=== PATIENT | female | born 1985 | race African-American/Black ===

== ENCOUNTER 2018-05-22 08:08 | Emergency (ER) | payer OTHER ==
[2018-05-22 08:14] VITALS: BP 103/65
--- NOTE | 2018-05-22 10:40 | UC ---
Skin Complaint HPI - HPI Summary HPI Summary: 33 yo female c/o itchy bumps, started in evening but bad this morning. Better now, but still itchy. Noted rash on forearms, back and torso. No sob / cp. No report of tongue swelling / stridor / sob. Not sure if contact from yesterday or other exposure. No fever / chills. - History of Current Complaint Chief Complaint: UCRash Time Seen by Provider: 05/22/18 09:40 Stated Complaint: RASH Hx Obtained From: Patient Hx Last Menstrual Period: 05/20/18 Pain Intensity: 0 Pain Scale Used: 0-10 Numeric - Allergy/Home Medications Allergies/Adverse Reactions: Allergies Allergy/AdvReac Type Severity Reaction Status Date / Time No Known Allergies Allergy Verified 05/22/18 08:15 Review of Systems All Other Systems Reviewed And Are Negative: Yes Constitutional: Positive: Negative Skin: Positive: Other - see hpi Eyes: Positive: Negative ENT: Positive: Negative Respiratory: Positive: Negative Cardiovascular: Positive: Negative Gastrointestinal: Positive: Negative Genitourinary: Positive: Negative Motor: Positive: Negative Neurovascular: Positive: Negative Musculoskeletal: Positive: Negative Neurological: Positive: Negative Psychological: Positive: Negative Is Patient Immunocompromised?: No PMH/Surg Hx/FS Hx/Imm Hx Previously Healthy: Yes - Surgical History Surgical History: None - Family History Known Family History: Positive: Other - she is not aware of any family heart disorders - Social History Alcohol Use: Occasionally Substance Use Type: None Smoking Status (MU): Former Smoker Household Exposure Type: Cigarettes Physical Exam Triage Information Reviewed: Yes Appearance: Well-Nourished - NAD. Nontoxic appearance. Vital Signs: Initial Vital Signs Temp 97.3 F 05/22/18 08:11 Pulse 66 05/22/18 08:11 Resp 16 05/22/18 08:11 BP 103/65 05/22/18 08:11 Pulse Ox 98 05/22/18 08:11 Eye Exam: Normal ENT Exam: Normal Neck exam: Normal Respiratory Exam: Normal - no tachypnea , no dypsnea, no cough, rr normal Cardiovascular Exam: Normal Abdominal Exam: Normal Abdomen Description: Positive: Nontender Musculoskeletal Exam: Normal Neurological Exam: Normal Psychological Exam: Normal Skin Exam: Other - several lesions scattered noted on back, very small, these are suspicious for insect bite. there are several other areas noted on back, pt describes similar on forearms, c/w hives. No purulence / drainage / fluctuance. Course/Dx - Course Course Of Treatment: Reviewed coa / tx plan. She will take the medrol dose pack script, will start tomorrow am if not better or worse. Will start antihist , add pepcid. Questions as posed answered to the best of my ability. - Diagnoses Provider Diagnoses: Rash - c/w combo insect bites and hives Discharge - Sign-Out/Discharge Documenting (check all that apply): Patient Departure All imaging exams completed and their final reports reviewed: No Studies - Discharge Plan Condition: Stable Disposition: HOME Prescriptions: methylPREDNISolone [Medrol] 4 mg PO DAILY #1 tab.ds.pk Patient Education Materials: Antihistamine (By mouth), Urticaria (ED), Insect Bite or Sting (ED) Referrals: Franky Sarah MD [Primary Care Provider] - Additional Instructions: Avoid red wine, strong soaps, hot water / hot local heat until symptoms resolved. drink plenty of fluids Pepcid ac once daily while taking antihistamine - Billing Disposition and Condition Condition: STABLE Disposition: Home
== END 2018-05-22 10:12 | disposition home or self-care (01) ==
LOC: UCEAST 08:08
DX: R21 Rash and other nonspecific skin eruption (principal); Z87.891 Personal history of nicotine dependence
CPT/HCPCS: 99212; G0463

== ENCOUNTER 2018-08-19 16:29 | Emergency (ER) | payer OTHER ==
--- NOTE | 2018-08-19 18:03 | ED ---
Complex/Multi-Sys Presentation - HPI Summary HPI Summary: This pt is a 33 y/[facility], lightheadedness, dizziness x3 days. Pt reports she has an eating disorder, anorexia, and is seeing a therapist (Ijeoma Pabon) for this in [place]. Pt notes she eats one meal a day and eats around 1530. Today at about 15:30 pt was 3 bites in into her bowl of oatmeal when she experienced "out of body experience," lightheadedness, dizziness, sweating, nausea, visual disturbance, and back of head "prickling." She states she has had this episode happen since 2 days ago, . Additionally currently reports she has chest tightness. Denies SOB, fever , chills. Pt reports she had a fever over the weekend, now resolved . She admits to occasionally alcohol use, none today. Denies tobacco and drug use. No other PMHx. - History Of Current Complaint Chief Complaint: EDGeneral Time Seen by Provider: 08/19/18 17:49 Hx Obtained From: Patient Onset/Duration: Lasting Days, Still Present Timing: Days Severity Currently: Mild Severity Initially: Moderate Location: Pain At: - chest tightness Aggravating Factor(s): nothing Alleviating Factor(s): nothing Associated Signs And Symptoms: Positive: Dizziness, Chest Pain, Nausea, Diaphoresis, Other - POS: visual disturbance, lightheadedness. Negative: SOB, Fever - Allergies/Home Medications Allergies/Adverse Reactions: Allergies Allergy/AdvReac Type Severity Reaction Status Date / Time No Known Allergies Allergy Verified 05/22/18 08:15 Home Medications: Home Medications buPROPion SR TAB* [Wellbutrin SR TAB*] 150 mg PO DAILY 08/19/18 [History Confirmed 08/19/18] PMH/Surg Hx/FS Hx/Imm Hx Endocrine/Hematology History: Denies: Hx Diabetes, Hx Thyroid Disease Cardiovascular History: Denies: Hx Hypertension, Hx Pacemaker/ICD, Hx Peripheral Vascular Disease Respiratory History: Denies: Hx Asthma, Hx Chronic Obstructive Pulmonary Disease (COPD) GI History: Denies: Hx Ulcer History: Denies: Hx Renal Disease Musculoskeletal History: Denies: Hx Arthritis, Hx Rheumatoid Arthritis, Hx Osteoporosis Sensory History: Denies: Hx Cataracts, Hx Contacts or Glasses, Hx Glaucoma, Hx Hearing Aid Opthamlomology History: Denies: Hx Cataracts, Hx Contacts or Glasses, Hx Glaucoma Neurological History: Denies: Hx Headaches, Hx Seizures, Hx Transient Ischemic Attacks (TIA) Psychiatric History: Reports: Hx Eating Disorder - anorexia Denies: Hx Anxiety, Hx Depression, Hx Panic Disorder Infectious Disease History: No Infectious Disease History: Denies: Hx Clostridium Difficile, Hx Hepatitis, Hx Human Immunodeficiency Virus (HIV), Hx of Known/Suspected MRSA, Hx Shingles, Hx Tuberculosis, Hx Known/ Suspected VRE, Hx Known/Suspected VRSA, History Other Infectious Disease, Traveled Outside the [place] in Last 30 Days - Family History Known Family History: Positive: Other - she is not aware of any family heart disorders - Social History Alcohol Use: Weekly Substance Use Type: Reports: None Smoking Status (MU): Former Smoker Review of Systems Positive: Skin Diaphoresis. Negative: Fever, Chills Eyes: Other - POS: visual changes Positive: Chest Pain Negative: Shortness Of Breath Positive: Nausea Neurological: Other - POS: dizziness, lightheadedness All Other Systems Reviewed And Are Negative: Yes Physical Exam - Summary Physical Exam Summary: VITAL SIGNS: Reviewed. GENERAL: Patient is a well-developed and nourished female who is lying comfortable in the stretcher. Patient is not in any acute respiratory distress. HEAD AND FACE: No signs of trauma. No ecchymosis, hematomas or skull depressions. No sinus tenderness. EYES: PERRLA, EOMI x 2, No injected conjunctiva, no nystagmus. EARS: Hearing grossly intact. Ear canals and tympanic membranes are within normal limits. MOUTH: Oropharynx within normal limits. NECK: Supple, trachea is midline, no adenopathy, no JVD, no carotid bruit, no c- spine tenderness, neck with full ROM. CHEST: Symmetric, no tenderness at palpation LUNGS: Clear to auscultation bilaterally. No wheezing or crackles. CVS: Regular rate and rhythm, S1 and S2 present, no murmurs or gallops appreciated. ABDOMEN: Soft, non-tender. No signs of distention. No rebound, no guarding, and no masses palpated. Bowel sounds are normal. EXTREMITIES: FROM in all major joints, no edema, no cyanosis or clubbing. NEURO: Alert and oriented x 3. No acute neurological deficits. Speech is normal and follows commands. SKIN: Dry and warm Triage Information Reviewed: Yes Vital Signs On Initial Exam: Initial Vitals Temp Pulse Resp BP Pulse Ox 98.7 F 91 20 132/84 98 08/19/18 16:32 08/19/18 16:32 08/19/18 16:32 08/19/18 16:32 08/19/18 16:32 Vital Signs Reviewed: Yes Diagnostics - Vital Signs Vital Signs Temp Pulse Resp BP Pulse Ox 08/19/18 17:33 72 110/68 96 08/19/18 16:32 98.7 F 91 20 132/84 98 - Laboratory Result Diagrams: 08/19/18 18:28 08/19/18 18:28 Lab Statement: Any lab studies that have been ordered have been reviewed, and results considered in the medical decision making process. Re-Evaluation - Re-Evaluation First Eval Re-Evaluation Time: 20:10 Comment: I reviewed the lab results with the pt. She will be discharged home. Complex Multi-Symp Course/Dx Assessment/Plan: Blood work without any significant abnormality except for WBCs of 2.8 and absolute neutrophils of 0.9. Patient denies any fever, chills, denies any cough, headache, shortness of breath, diarrhea or constipation. I discussed the case with Dr. Alexander, oncologist, who thinks that the patient is having this blood test results due to her anorexia and lack of caloric intake. However, he recommends for the patient to be discharged home and follow up with oncology/hematology. I discussed the findings and test results with the patient and she understands and agrees. She will follow-up with hematology. She was instructed to return to the emergency room if she develops any fever, chills, or any other symptom. She understands and agrees. Patient is alert and oriented x3. - Diagnoses Provider Diagnoses: Neutropenia, Leukopenia - Physician Notifications Discussed Care Of Patient With: iRan Alexander - oncologist Time Discussed With Above Provider: 20:08 Instructed by Provider To: Other - Discussed pt care with Dr. Alexander, oncologist , who reports pt can be discharged home with follow up in his office. Discharge - Sign-Out/Discharge Documenting (check all that apply): Patient Departure - Discharge home Patient Received Moderate/Deep Sedation with Procedure: No - Discharge Plan Condition: Stable Disposition: HOME Patient Education Materials: Neutropenia (ED) Referrals: Rian Alexander MD [Medical Doctor] - 2 Days Additional Instructions: FOLLOW UP WITH DR. ALEXANDER, ONCOLOGIST, IN 2 DAYS. RETURN TO THE ED FOR ANY NEW OR WORSENING SYMPTOMS. - Billing Disposition and Condition Condition: STABLE Disposition: Home - Attestation Statements Document Initiated by Anabellaibe: Yes Documenting Scribe: Elsa Mccullough Provider For Whom Scribe is Documenting (Include Credential): Kashmir Nuno MD Scribe Attestation: Elsa Lee, scribed for Kashmir Nuno MD on 08/21/18 at 2042. Scribe Documentation Reviewed: Yes Provider Attestation: The documentation as recorded by the Elsa waite accurately reflects the service I personally performed and the decisions made by Kashmir rosa MD Status of Scribe Document: Viewed
[2018-08-19 18:36] LABS: Hematocrit 39 % (35-47); Hemoglobin 13.1 g/dl (12.0-16.0); Mean Corpuscular HGB Conc 34 g/dl (31-36); Mean Corpuscular Hemoglobin 31 pg (27-31); Mean Corpuscular Volume 91 fL (80-97); Mean Platelet Volume 8.5 fL (7.4-10.4); Platelet Count 192 10^3/ul (150-450); Red Blood Count 4.26 10^6/ul (4.00-5.40); Red Cell Distribution Width 14 % (10.5-15); White Blood Count 2.8 10^3/ul (3.5-10.8)
[2018-08-19 18:38] LABS: Urine Appearance Clear; Urine Bilirubin Negative (Negative); Urine Blood Negative (Negative); Urine Color Straw; Urine Glucose Negative (Negative); Urine Ketones Negative (Negative); Urine Nitrite Negative (Negative); Urine Protein Negative (Negative); Urine Specific Gravity 1.003 (1.010-1.030); Urine Urobilinogen Negative (Negative)
[2018-08-19 18:45] LABS: ABS Neutrophils 0.9 10^3/ul (1.5-7.7)
[2018-08-19 18:53] LABS: ALT 29 U/L (7-52); AST 37 U/L (13-39); Albumin 4.3 g/dL (3.2-5.2); Albumin/Globulin Ratio 1.8 (1-3); Alkaline Phosphatase 36 U/L (34-104); Anion Gap 4 mmol/L (2-11); Blood Urea Nitrogen 15 mg/dL (6-24); C Reactive Protein < 1.00 mg/L (<8.01); CO2 Carbon Dioxide 31 mmol/L (22-32); Calcium 8.9 mg/dL (8.6-10.3); Chloride 105 mmol/L (101-111); EGFR African American 88.5 (>60); EGFR Non-African American 73.1 (>60); Globulin 2.4 g/dL (2-4); Glucose 99 mg/dL (70-100); Sodium 140 mmol/L (135-145); Total Protein 6.7 g/dL (6.4-8.9)
[2018-08-19 19:49] LABS: ABS Basophils 0 10^3/ul (0-0.2); ABS Eosinophils 0 10^3/ul (0-0.6); ABS Lymphocytes 1.4 10^3/ul (1.0-4.8); ABS Monocytes 0.5 10^3/ul (0-0.8); ABS Nucleated RBC 0 10^3/ul; Eosinophil % 0.2 %; Lymphocyte % 51.1 %; Nucleated Red Blood Cells % 0.1
[2018-08-19 20:23] VITALS: BP 102/66
== END 2018-08-19 20:23 | disposition home or self-care (01) ==
LOC: ED 16:29
DX: D72.819 Decreased white blood cell count, unspecified (principal); Z87.891 Personal history of nicotine dependence
CPT/HCPCS: 36415; 80053; 81003; 83690; 85025; 85060; 86140; 99282

== ENCOUNTER 2019-09-07 20:23 | Emergency (ER) | payer OTHER ==
[2019-09-07 21:03] LABS: ABS Lymphocytes 1.7 10^3/ul (1.0-4.8); ABS Monocytes 0.5 10^3/ul (0-0.8); ABS Neutrophils 3.3 10^3/ul (1.5-7.7); Eosinophil % 0.8 %; Hematocrit 43 % (35-47); Hemoglobin 14.8 g/dL (12.0-16.0); Lymphocyte % 30.9 %; Mean Corpuscular HGB Conc 35 g/dL (31-36); Mean Corpuscular Hemoglobin 33 pg (27-31); Mean Corpuscular Volume 94 fL (80-97); Mean Platelet Volume 8.3 fL (7.4-10.4); Nucleated Red Blood Cells % 0.1; Platelet Count 230 10^3/uL (150-450); Red Blood Count 4.54 10^6 /uL (3.70-4.87); Red Cell Distribution Width 14 % (10-15); White Blood Count 5.6 10^3/uL (3.5-10.8)
[2019-09-07 21:21] LABS: ALT 13 U/L (7-52); AST 22 U/L (13-39); Albumin 5.2 g/dL (3.2-5.2); Albumin/Globulin Ratio 1.9 (1-3); Alkaline Phosphatase 40 U/L (34-104); Anion Gap 9 mmol/L (2-11); BUN/Creatinine Ratio 14.3 (8-20); Blood Urea Nitrogen 12 mg/dL (6-24); C Reactive Protein < 1.00 mg/L (<8.01); CO2 Carbon Dioxide 31 mmol/L (22-32); Calcium 10.6 mg/dL (8.6-10.3); Chloride 100 mmol/L (101-111); EGFR African American 92.8 (>60); EGFR Non-African American 76.7 (>60); Globulin 2.7 g/dL (2-4); Glucose 106 mg/dL (70-100); Potassium 3.9 mmol/L (3.5-5.0); Sodium 140 mmol/L (135-145); Total Protein 7.9 g/dL (6.4-8.9)
[2019-09-08] MEDS ORDERED: Pantoprazole IV* 40 MG IV ONE (01:02)
[2019-09-08 01:12] LABS: Amylase 77 U/L (29-103)
[2019-09-08 01:18] LABS: Alcohol < 10 mg/dL (<10)
--- NOTE | 2019-09-08 01:33 | ED ---
Abdominal Pain/Female - HPI Summary HPI Summary: Pt is a 34 y/o F presenting to the ED with a chief complaint of intense LUQ pain. She [facility] advised her to come here. While she was in the parking lot, her pain went away, but she googled it and thought it might be exacerbated by food/drink, so she drank some water and the pain came back with a vengeance. It has been wavering between a 6 and 8 out of 10 in her epigastric region, but she currently denies any pain. The pain did radiate to her right upper quadrant and epigastric region as well. She had some diarrhea just prior to onset. Denies urinary sx. She states she is anorexic and drinks too much alcohol so she is worried about pancreatitis. Her blood sugar has also been low recently. - History of Current Complaint Chief Complaint: EDAbdPain Stated Complaint: ABD PAIN PER PT Time Seen by Provider: 09/08/19 00:33 Hx Obtained From: Patient Hx Last Menstrual Period: 05/20/18 Onset/Duration: Gradual Onset, Still Present Timing: Days Severity Initially: Moderate Severity Currently: None Pain Intensity: 8 Pain Scale Used: 0-10 Numeric Location: Discrete At: LUQ Radiates: No Aggravating Factor(s): Food - any oral intake Alleviating Factor(s): Nothing Associated Signs and Symptoms: Positive: Diarrhea. Negative: Urinary Symptoms Allergies/Adverse Reactions: Allergies Allergy/AdvReac Type Severity Reaction Status Date / Time No Known Allergies Allergy Verified 09/07/19 20:27 Home Medications: Home Medications Multiple Minerals W/ Vitamins [Bone Density Builder] 1 tab PO DAILY 02/19/17 [ History Confirmed 08/19/18] [place]-3 Fatty Acids/Fish Oil [Fish Oil 1,200 mg Softgel] 1 cap PO DAILY [History Confirmed 08/19/18] Polyethylene Glycol 3350* [Miralax (17 GM DOSE NANCY)] 17 gm PO DAILY 02/19/17 [ History Confirmed 08/19/18] Vitamin B Complex CAP* [B Complex CAP*] 1 cap PO DAILY 02/19/17 [History Confirmed 08/19/18] buPROPion SR TAB* [Wellbutrin SR TAB*] 150 mg PO DAILY 08/19/18 [History Confirmed 08/19/18] Omeprazole CAP (NF) [Prilosec CAP* 20 MG] 20 mg PO 1700 #30 ahsan. 09/08/19 [Rx] PMH/Surg Hx/FS Hx/Imm Hx Previously Healthy: Yes Endocrine/Hematology History: Denies: Hx Diabetes, Hx Thyroid Disease Cardiovascular History: Denies: Hx Hypertension, Hx Pacemaker/ICD, Hx Peripheral Vascular Disease Respiratory History: Denies: Hx Asthma, Hx Chronic Obstructive Pulmonary Disease (COPD) GI History: Denies: Hx Ulcer History: Denies: Hx Renal Disease Musculoskeletal History: Denies: Hx Arthritis, Hx Rheumatoid Arthritis, Hx Osteoporosis Sensory History: Denies: Hx Cataracts, Hx Contacts or Glasses, Hx Glaucoma, Hx Hearing Aid Opthamlomology History: Denies: Hx Cataracts, Hx Contacts or Glasses, Hx Glaucoma Neurological History: Denies: Hx Headaches, Hx Seizures, Hx Transient Ischemic Attacks (TIA) Psychiatric History: Reports: Hx Eating Disorder - anorexia Denies: Hx Anxiety, Hx Depression, Hx Panic Disorder Infectious Disease History: No Infectious Disease History: Denies: Hx Clostridium Difficile, Hx Hepatitis, Hx Human Immunodeficiency Virus (HIV), Hx of Known/Suspected MRSA, Hx Shingles, Hx Tuberculosis, Hx Known/ Suspected VRE, Hx Known/Suspected VRSA, History Other Infectious Disease, Traveled Outside the [place] in Last 30 Days - Family History Known Family History: Positive: Other - she is not aware of any family heart disorders - Social History Alcohol Use: Weekly Hx Substance Use: No Substance Use Type: Reports: None Hx Tobacco Use: Yes Smoking Status (MU): Light Every Day Tobacco Smoker Review of Systems Positive: Abdominal Pain, Diarrhea Positive: no symptoms reported All Other Systems Reviewed And Are Negative: Yes Physical Exam - Summary Physical Exam Summary: General: Thin female. No acute distress. HEENT: Normocephalic, Atraumatic. Eyes: Conjuctiva normal, PERRL. Oropharynx: Clear, mucous membranes moist, (-) exudates. Neck: Soft, FROM, (-) lymphadenopathy, (-) thyromegaly, (-) JVD. Cardiovascular: Normal sinus rhythm, (-) murmur. Lungs: Clear to auscultation bilaterally (-) wheezes, (-) rales, (-) rhonchi. Abdomen: Soft, non-tender, non-distended, (-) organomegaly, normal bowel sounds. Back: (-) CVA tenderness Extremities: No edema. Skin: Warm, dry, (-) rash. Neuro: Alert and oriented x3, moves all extremities equally. No ataxia. No gait disturbance. No sensory deficit. Normal strength, normal sensation. Psychiatric: Mood normal, affect normal. Triage Information Reviewed: Yes Vital Signs On Initial Exam: Initial Vitals Temp Pulse Resp BP Pulse Ox 98.2 F 81 16 144/106 100 09/07/19 20:23 09/07/19 20:23 09/07/19 20:23 09/07/19 20:23 09/07/19 20:23 Vital Signs Reviewed: Yes Procedures - Sedation Patient Received Moderate/Deep Sedation with Procedure: No Diagnostics - Vital Signs Vital Signs Temp Pulse Resp BP Pulse Ox 09/08/19 00:32 57 108/76 97 09/08/19 00:03 56 98 09/08/19 00:02 58 134/85 98 09/07/19 22:45 98.5 F 65 16 150/109 100 09/07/19 20:23 98.2 F 81 16 144/106 100 - Laboratory Lab Results: Lab Results 09/07/19 09/07/19 09/07/19 Range/Units 20:54 20:54 20:54 WBC 5.6 (3.5-10.8) 10^3/uL RBC 4.54 (3.70-4.87) 10^6 /uL Hgb 14.8 (12.0-16.0) g/dL Hct 43 (35-47) % MCV 94 (80-97) fL MCH 33 H (27-31) pg MCHC 35 (31-36) g/dL RDW 14 (10-15) % Plt Count 230 (150-450) 10^3/uL MPV 8.3 (7.4-10.4) fL Neut % (Auto) 59.2 % Lymph % (Auto) 30.9 % [place] % (Auto) 8.5 % Eos % (Auto) 0.8 % Baso % (Auto) 0.6 % Absolute Neuts (auto) 3.3 (1.5-7.7) 10^3/ul Absolute Lymphs (auto) 1.7 (1.0-4.8) 10^3/ul Absolute Monos (auto) 0.5 (0-0.8) 10^3/ul Absolute Eos (auto) 0.0 (0-0.6) 10^3/ul Absolute Basos (auto) 0.0 (0-0.2) 10^3/ul Absolute Nucleated RBC 0.0 10^3/ul Nucleated RBC % 0.1 Sodium 140 (135-145) mmol/L Potassium 3.9 (3.5-5.0) mmol/L Chloride 100 L (101-111) mmol/L Carbon Dioxide 31 (22-32) mmol/L Anion Gap 9 (2-11) mmol/L BUN 12 (6-24) mg/dL Creatinine 0.84 (0.51-0.95) mg/dL Est GFR ( Amer) 92.8 (>60) Est GFR (Non-Af Amer) 76.7 (>60) BUN/Creatinine Ratio 14.3 (8-20) Glucose 106 H (70-100) mg/dL Lactic Acid 1.0 (0.5-2.0) mmol/L Calcium 10.6 H (8.6-10.3) mg/dL Total Bilirubin 0.50 (0.2-1.0) mg/dL AST 22 (13-39) U/L ALT 13 (7-52) U/L Alkaline Phosphatase 40 (34-104) U/L C-Reactive Protein < 1.00 (<8.01) mg/L Total Protein 7.9 (6.4-8.9) g/dL Albumin 5.2 (3.2-5.2) g/dL Globulin 2.7 (2-4) g/dL Albumin/Globulin Ratio 1.9 (1-3) Amylase 77 (29-103) U/L Lipase 21 (11.0-82.0) U/L Serum Alcohol < 10 (<10) mg/dL Result Diagrams: 09/07/19 20:54 09/07/19 20:54 Lab Statement: Any lab studies that have been ordered have been reviewed, and results considered in the medical decision making process. Abdominal Pain Fem Course/Dx - Course Course Of Treatment: 34-year-old female presents from home with abdominal pain. Patient states she's been having severe abdominal pain tonight. Somewhat waxing and waning. As high as 8 out of 10. Patient states it seemed to get worse with food. At this time her pain has decreased and is now a 2 out of 10. She had some nausea. No vomiting. Had episode of diarrhea this morning. No fevers or chills. Patient does note a history of anorexia. She also states she drinks too much alcohol. So when she was looking her symptoms up online and she was worried about her pancreas. Patient has no previous abdominal surgeries. Workup demonstrates a slightly elevated calcium. No urine was obtained. Patient's symptoms remain improved. CAT scan was considered but since patient is afebrile, normal white count, improved symptoms that was deferred. Patient discharged to home. Discussed possible etiologies such as gastritis and reflux. Given Protonix and started on omeprazole. Follow up with PCP. Follow-up sooner for any worsening symptoms. - Diagnoses Provider Diagnoses: Upper abdominal pain Discharge ED - Sign-Out/Discharge Documenting (check all that apply): Patient Departure - Discharge Plan Condition: Stable Disposition: HOME Prescriptions: Omeprazole CAP (NF) [Prilosec CAP* 20 MG] 20 mg PO 1700 #30 cap.dr Patient Education Materials: Abdominal Pain (ED) Referrals: Mikel Easley, ADMINISTRATIVE SUPPORT MANAGER [Primary Care Provider] - Additional Instructions: Please follow up with your primary care provider within the next 2-3 days. Return to the emergency department with any new or worsening symptoms. - Billing Disposition and Condition Condition: STABLE Disposition: Home - Attestation Statements Document Initiated by Diamond: Yes Documenting Scribe: Aura Danielle Provider For Whom Diamond is Documenting (Include Credential): Linn Paredes MD. Scribe Attestation: Aura Lee, fatoumataed for Linn Paredes MD. on 09/08/19 at 0446. Scribe Documentation Reviewed: Yes Provider Attestation: The documentation as recorded by the Aura waite accurately reflects the service I personally performed and the decisions made by me, Linn Paredes MD. Status of Scribe Document: Viewed
[2019-09-08 02:50] VITALS: BP 115/86
[2019-09-08] MEDS ORDERED: Pantoprazole TAB * 40 MG TAB ONE (02:55)
[2019-09-08] MEDS ORDERED: Pantoprazole TAB * 40 MG TAB PO ONE (02:55)
== END 2019-09-08 03:18 | disposition home or self-care (01) ==
LOC: ED 20:23
DX: R10.9 Unspecified abdominal pain (principal); R19.7 Diarrhea, unspecified; F17.210 Nicotine dependence, cigarettes, uncomplicated
CPT/HCPCS: 36415; 80053; 80320; 82150; 83605; 83690; 85025; 86140; 99283; A9270-GY; G0480

== ENCOUNTER 2019-10-20 17:40 | Emergency (ER) | payer OTHER ==
--- OUTSIDE RECORDS SUMMARY | 2019-10-20 18:21 | XMS REPORT | Continuity of Care Document ---
:1985 External Reference #:[id number] Author Name Mikel Easley NP (transmitted by agent of provider Cynthia Salas) Address [address], [address] [place] [id number] Care Team Providers Name Role Phone Karmen Hwang NP - Family Care Team Information Manager Validation [phone] Heath Leach MD - Rheumatology Care Team Information Manager Validation Mikel Easley NP - Internal Medicine Care Team Information Manager Validation Problems Active Problems Provider Date Localized, primary osteoarthritis Nallely Bledsoe M.D. Onset: 02/06/2018 Derangement of knee Nallely Bledsoe M.D. Onset: 03/30/2018 Anorexia nervosa Mikel Easley NP Onset: 08/31/2018 Osteopenia Mikel Easley NP Onset: 01/12/2019 Note: Secondary to eating disordere Social History Type Date Description Comments Sex Unknown Tobacco Use Start: Unknown Light tobacco smoker 3-4 cigarettes per (10 or fewer day Quit 4-5 years cigarettes/day) ago then started again 2 months ago. ETOH Use Drinks 4 Alcoholic 4-6 per week Beverages Per Week Previously high alcohol intake. Recreational Drug Use Never Used Drugs Tobacco Use Start: Unknown Patient is a current smoker, smokes every day Smoking Status Reviewed: 09/08/19 Patient is a current smoker, smokes every day Exercise Type/Frequency Does not exercise Allergies, Adverse Reactions, Alerts Description No Known Drug Allergies Medications Active Medications SIG Qnty Indications Ordering Provider Date Omeprazole 1 by mouth twice 30caps K30 Mikel Easley NP 09/08/[address] Sucralfate take one tablet 90tabs K30 Mikel Easley NP 09/08/2019 1gm Tablets by mouth four times a day [place] 3 one capsule by Unknown mouth daily Vitamin B Complex one tablet by Unknown mouth daily Bone Builder 2 capsules three Unknown times daily Vitamin K2-Vitamin D3 Unknown [id number] Capsules Naltrexone HCL 1/2 tablet by Unknown 50mg mouth every day Tablets Immunizations Description No Information Available Vital Signs Date Vital Result Comment 09/08/2019 11:51am Height 64 inches 5'4" Heart Rate 63 /min BP Systolic 104 mmHg BP Diastolic 72 mmHg O2 % BldC Oximetry 100 % 01/21/2019 9:37am Height 64 inches 5'4" Weight 99.00 lb Heart Rate 77 /min BP Systolic 107 mmHg BP Diastolic 73 mmHg O2 % BldC Oximetry 99 % BMI (Body Mass Index) 17.0 kg/m2 Results Description No Information Available Procedures Date Code Description Status 07/03/2017 [id number] Mammogram Completed Medical Devices Description No Information Available Encounters Description No Information Available Assessments Date Code Description Provider 09/08/2019 K30 Functional dyspepsia Mikel Easley NP Plan of Treatment 09/08/2019 - Mikel Easley NPK30 Functional dyspepsiaNew Medication:Omeprazole 20 mg - 1 by mouth twice dailySucralfate 1 gm - take one tablet by mouth four times a dayComments:Start taking the omeprzole twice daily. Do this for at least 2-4 weeks. Then you can try reducing toonce daily for two more weeks.Take the carafate 30 minutes prior to meals. Functional Status Description No Information Available Mental Status Description No Information Available Referrals Description No Information Available
--- OUTSIDE RECORDS SUMMARY | 2019-10-20 18:21 | XMS REPORT | Continuity of Care Document ---
:1985 External Reference #:[id number] Author Name Mikel Easley NP (transmitted by agent of provider Vandana Barajas) Address [address], [address] [place] [id number] Care Team Providers Name Role Phone Karmen Hwang NP - Family Care Team Information Analysis Analyst [phone] Heath Leach MD - Rheumatology Care Team Information Analysis Analyst Mikel Easley NP - Internal Medicine Care Team Information Analysis Analyst Problems Active Problems Provider Date Localized, primary [...] Tablets by mouth four times a day [place] 3 one capsule by Unknown mouth daily Vitamin B Complex one tablet by Unknown mouth daily Bone Builder 2 capsules three Unknown times daily Vitamin K2-Vitamin D3 Unknown [id number] Capsules Naltrexone HCL 1/2 tablet by Unknown [...] BMI (Body Mass Index) 17.0 kg/m2 Results Test Acquired Date Facility Test Result H/L Range Note CBC Auto 09/07/2019 [facility] White Blood 5.6 10^3/uL Normal 3.5-10.[address] [place] [address] [phone] Red Blood Count 4.54 10^6/uL Normal 3.70-4.87 Hemoglobin 14.8 g/dL Normal 12.0-16.0 Hematocrit 43 % Normal 35-47 Mean Corpuscular Volume 94 fL Normal 80-97 Mean Corpuscular Hemoglobin 33 pg High 27-31 Mean Corpuscular HGB Conc 35 g/dL Normal 31-36 Red Cell Distribution Width 14 % Normal 10-15 Platelet Count 230 10^3/uL Normal 150-450 Mean Platelet Volume 8.3 fL Normal 7.4-10.4 Abs Neutrophils 3.3 10^3/uL Normal 1.5-7.7 Abs Lymphocytes 1.7 10^3/uL Normal 1.0-4.8 Abs Monocytes 0.5 10^3/uL Normal 0-0.8 Abs Eosinophils 0.0 10^3/uL Normal 0-0.6 Abs Basophils 0.0 10^3/uL Normal 0-0.2 Abs Nucleated RBC 0.0 10^3/uL Granulocyte % 59.2 % Lymphocyte % 30.9 % Monocyte % 8.5 % Eosinophil % 0.8 % Basophil % 0.6 % Nucleated Red Blood Cells % 0.1 Laboratory test 09/07/2019 [facility] Lactic Acid 1.0 mmol/L Normal 0.5-2.0 1 finding [address] [place] [address] [phone] Comp Metabolic 09/07/2019 [facility] Sodium 140 mmol/L Normal 135-145 Panel [address] [place] [address] [phone] Potassium 3.9 mmol/L Normal 3.5-5.0 Chloride 100 mmol/L Low 101-111 Co2 Carbon Dioxide 31 mmol/L Normal 22-32 Anion Gap 9 mmol/L Normal 2-11 Glucose 106 mg/dL High 70-100 Blood Urea Nitrogen 12 mg/dL Normal 6-24 Creatinine 0.84 mg/dL Normal 0.51-0.95 BUN/Creatinine Ratio 14.3 Normal 8-20 Calcium 10.6 mg/dL High 8.6-10.3 Total Protein 7.9 g/dL Normal 6.4-8.9 Albumin 5.2 g/dL Normal 3.2-5.2 Globulin 2.7 g/dL Normal 2-4 Albumin/Globulin Ratio 1.9 Normal 1-3 Total Bilirubin 0.50 mg/dL Normal 0.2-1.0 Alkaline Phosphatase 40 U/L Normal 34-104 Alt 13 U/L Normal 7-52 Ast 22 U/L Normal 13-39 Egfr Non- 76.7 >60 Egfr 92.8 >60 2 Laboratory test 09/07/2019 [facility] Lipase 21 U/L Normal 11.0-82.0 finding [address] [place] [address] [phone] C Reactive Protein < 1.00 mg/L Normal <8.01 Amylase 77 U/L Normal 29-103 Alcohol < 10 mg/dL Normal <10 1 [facility] Severe Sepsis and Septic Shock Management Bundle Measure requires all lactic acids initially measuring >2.0 mmol/L be repeated. 2 Because ethnic data is not always readily available, this report includes an eGFR for both -Americans and non- Americans. The National Kidney Disease Education Program (NKDEP) does not endorse the use of the MDRD equation for patients that are not between the ages of 18 and 70, are , have extremes of body size, muscle mass, or nutritional status, or are non- or non-. According to the National Kidney Foundation, irrespective of diagnosis, the stage of the disease is based on the level of kidney function: Stage Description GFR(mL/min/1.73 m(2)) 1 Kidney damage with normal or decreased GFR 90 2 Kidney damage with mild decrease in GFR 60-89 3 Moderate decrease in GFR 30-59 4 Severe decrease in GFR 15-29 5 Kidney failure <15 (or dialysis) Procedures Date Code Description Status 07/03/2017 [id number] Mammogram Completed Medical Devices Description No Information Available Encounters Type Date Location Provider Dx Diagnosis Office Visit 09/08/2019 [employer] [facility] Mikel Easley NP K30 Functional dyspepsia 11:40a Medicine - [facility] Assessments Date Code Description Provider 09/08/2019 K30 Functional dyspepsia Mikel Easley NP Plan of Treatment 09/08/2019 - Mikel Easley [id number] Functional dyspepsiaNew Medication:Omeprazole 20 mg - 1 by mouth twice dailySucralfate 1 gm - take one tablet by mouth four times a dayComments:Start taking the omeprazole twice daily. Do this for at least 2-4 weeks. Then you can try reducing to once daily for two more weeks.Take the Carafate 30 minutes prior to meals. Functional Status Description No Information Available Mental Status Description No Information Available Referrals Description No Information Available
[2019-10-20] MEDS ORDERED: hydrOXYzine HCL TAB* 25 MG PO ONE (18:23)
--- NOTE | 2019-10-20 18:31 | ED ---
Complex/Multi-Sys Presentation - HPI Summary HPI Summary: Patient is a 34 y/o F presenting to [facility] via EMS for tremors, "out-of-body" sensation, near-syncopal, numbness, and chest pain. She states that she was gardening earlier today when her chest pain, tremors, near-syncopal and "out-of- body" sensation onset. Left-sided facial numbness subsequently onset, EMS was called. During transport, patient states that she had onset of tingling in lower legs bilaterally. The patient had tested positive for COVID-19 10/08/19. She states that she was an asymptomatic carrier and has since been released from quarantine. PMHx of GERD noted. She reports a Hx of anxiety and anorexia. Home medications and allergies are reviewed. Home Medications Medication Instructions Recorded Confirmed Type Polyethylene Glycol 3350* [Miralax 17 gm PO DAILY PRN 02/19/17 10/20/19 History (17 GM DOSE NANCY)] Vitamin B Complex CAP* [B Complex 1 cap PO DAILY 02/19/17 10/20/19 History CAP*] Multivitamin [Multiple Vitamins] 1 tab PO DAILY 10/20/19 10/20/19 History [place]-3S/Dha/Epa/Fish Oil [Fish 1 cap PO DAILY 10/20/19 10/20/19 History Oil 1,200 mg Softgel] Omeprazole CAP (NF) [Prilosec CAP* 20 mg PO BID 10/20/19 10/20/19 History 20 MG] - History Of Current Complaint Time Seen by Provider: 10/20/19 17:52 Hx Obtained From: Patient Onset/Duration: Still Present Timing: Constant Location: Pain At: - chest Associated Signs And Symptoms: Positive: Chest Pain, Other - tremors, "out of body" sensation, numbness - Allergies/Home Medications Allergies/Adverse Reactions: Allergies Allergy/AdvReac Type Severity Reaction Status Date / Time No Known Allergies Allergy Verified 09/07/19 20:27 Home Medications: Home Medications Polyethylene Glycol 3350* [Miralax (17 GM DOSE NANCY)] 17 gm PO DAILY PRN [History Confirmed 10/20/19] Vitamin B Complex CAP* [B Complex CAP*] 1 cap PO DAILY 02/19/17 [History Confirmed 10/20/19] Multivitamin [Multiple Vitamins] 1 tab PO DAILY 10/20/19 [History Confirmed 03/02] [place]-3S/Dha/Epa/Fish Oil [Fish Oil 1,200 mg Softgel] 1 cap PO DAILY 10/20/19 [ History Confirmed 10/20/19] Omeprazole CAP (NF) [Prilosec CAP* 20 MG] 20 mg PO BID 10/20/19 [History Confirmed 10/20/19] hydrOXYzine HCL TAB* [Atarax 25 MG TAB*] 25 mg PO TID PRN 7 Days #20 tab [Rx] PMH/Surg Hx/FS Hx/Imm Hx Endocrine/Hematology History: Denies: Hx Diabetes, Hx Thyroid Disease Cardiovascular History: Denies: Hx Hypertension, Hx Pacemaker/ICD, Hx Peripheral Vascular Disease Respiratory History: Denies: Hx Asthma, Hx Chronic Obstructive Pulmonary Disease (COPD) GI History: Denies: Hx Ulcer History: Denies: Hx Renal Disease Musculoskeletal History: Denies: Hx Arthritis, Hx Rheumatoid Arthritis, Hx Osteoporosis Sensory History: Denies: Hx Cataracts, Hx Contacts or Glasses, Hx Glaucoma, Hx Hearing Aid Opthamlomology History: Denies: Hx Cataracts, Hx Contacts or Glasses, Hx Glaucoma Neurological History: Denies: Hx Headaches, Hx Seizures, Hx Transient Ischemic Attacks (TIA) Psychiatric History: Reports: Hx Eating Disorder - anorexia Denies: Hx Anxiety, Hx Depression, Hx Panic Disorder Infectious Disease History: Denies: Hx Clostridium Difficile, Hx Hepatitis, Hx Human Immunodeficiency Virus (HIV), Hx of Known/Suspected MRSA, Hx Shingles, Hx Tuberculosis, Hx Known/ Suspected VRE, Hx Known/Suspected VRSA, History Other Infectious Disease, Traveled Outside the [place] in Last 30 Days - Family History Known Family History: Positive: Other - she is not aware of any family heart disorders - Social History Alcohol Use: Weekly Hx Substance Use: No Substance Use Type: Reports: None Hx Tobacco Use: Yes Smoking Status (MU): Light Every Day Tobacco Smoker Review of Systems Positive: Other - Tremors, "out of body" sensation Positive: Chest Pain Positive: Numbness, Syncope - near-syncopal All Other Systems Reviewed And Are Negative: Yes Physical Exam - Summary Physical Exam Summary: Constitutional: Well-developed, thin, Alert. Mild tremors. (-) Distressed Skin: Warm, Dry HENT: Normocephalic; Atraumatic Eyes: Conjunctiva normal Neck: Musculoskeletal ROM normal neck. (-) JVD, (-) Stridor, (-) Nuchal rigidity Cardio: Tachycardic, Heart sounds normal; Intact distal pulses; Radial pulses are 2+ and symmetric. (-) Murmur Pulmonary/Chest wall: Effort normal. (-) Respiratory distress, (-) Wheezes, (-) Rales Abd: Soft, (-) tenderness, (-) Distension, (-) Guarding, (-) Rebound Musculoskeletal: (-) Edema Lymph: (-) Cervical adenopathy Neuro: Alert, Oriented x3 Psych: Anxious Triage Information Reviewed: Yes Vital Signs On Initial Exam: Initial Vital Signs Temp 98 F 10/20/19 18:25 Pulse 86 10/20/19 18:25 Resp 18 10/20/19 18:25 BP 123/105 10/20/19 18:25 Pulse Ox 100 10/20/19 18:25 Vital Signs Reviewed: Yes Procedures - Sedation Patient Received Moderate/Deep Sedation with Procedure: No Diagnostics - Laboratory Result Diagrams: 10/20/19 18:40 10/20/19 18:40 Lab Statement: Any lab studies that have been ordered have been reviewed, and results considered in the medical decision making process. - EKG 1802 Cardiac Rate: NL - rate of 99 BPM EKG Rhythm: Sinus Rhythm Summary of EKG Findings: EKG showed sinus rhythm with rate of 99 BPM, right axis deviation, no STEMI. ED physician has reviewed and interpreted this EKG. Complex Multi-Symp Course/Dx Course Of Treatment: 34 y/o F w hx anxiety, anorexia p/w episode of lightheadedness and tremors while gardening. - VSS NAD. Does appear anxious. Had episode of chest tightness and lightheadedness. EKG unremarkable. Labs w mildly elevated anion gap otherwise unremarkable. Given hydroxyzine which helped anxiety. No SOB/STACY or fevers. Suspect symptoms could be 2/2 poor PO intake as patient reports she does have a problem w proper intake/anorexia. She did try to increase her food intake today. - Diagnoses Provider Diagnoses: Near syncope, Chest pain Discharge ED - Sign-Out/Discharge Documenting (check all that apply): Patient Departure - discharge - Discharge Plan Condition: Stable Disposition: HOME Prescriptions: hydrOXYzine HCL TAB* [Atarax 25 MG TAB*] 25 mg PO TID PRN 7 Days #20 tab PRN Reason: Anxiety Patient Education Materials: Chest Pain (ED), Near Syncope (ED) Referrals: Mikel Easley NP [Primary Care Provider] - Additional Instructions: You were seen in the emergency department for passing out and chest pain. Your EKG (heart tracing), labs and chest x-ray did not show any cause for your symptoms. Important that you follow up with you primary care doctor in the next 1-2 days and let them know you were seen here. Please return to the emergency department for continued chest pain, trouble breathing, passing out, or if you're concerned. It was a pleasure taking care of you today. - Billing Disposition and Condition Condition: STABLE Disposition: Home - Attestation Statements Document Initiated by Diamond: Yes Documenting Scribe: OVI GRACE Provider For Whom Diamond is Documenting (Include Credential): SEUN SANTANA MD Scribe Attestation: I, OVI GRACE, scribed for SEUN SANTANA MD on 10/20/19 at 1953. Scribe Documentation Reviewed: Yes Provider Attestation: The documentation as recorded by the OVI waite accurately reflects the service I personally performed and the decisions made by me, SEUN SANTANA MD Status of Scribe Document: Viewed
[2019-10-20 18:46] LABS: ABS Monocytes 0.5 10^3/ul (0-0.8); ABS Neutrophils 3.1 10^3/ul (1.5-7.7); Eosinophil % 0.5 %; Hematocrit 40 % (35-47); Hemoglobin 14.1 g/dL (12.0-16.0); Mean Corpuscular HGB Conc 35 g/dL (31-36); Mean Corpuscular Hemoglobin 32 pg (27-31); Mean Corpuscular Volume 92 fL (80-97); Mean Platelet Volume 8.4 fL (7.4-10.4); Nucleated Red Blood Cells % 0.2; Platelet Count 257 10^3/uL (150-450); Red Blood Count 4.34 10^6 /uL (3.70-4.87); Red Cell Distribution Width 15 % (10-15); White Blood Count 4.7 10^3/uL (3.5-10.8)
[2019-10-20 19:11] LABS: HCG Pregnancy < 0.60 mIU/mL
[2019-10-20 19:12] LABS: ALT 32 U/L (7-52); Albumin 4.8 g/dL (3.2-5.2); Albumin/Globulin Ratio 1.6 (1-3); Alkaline Phosphatase 41 U/L (34-104); BUN/Creatinine Ratio 15.4 (8-20); Blood Urea Nitrogen 14 mg/dL (6-24); CO2 Carbon Dioxide 22 mmol/L (22-32); Calcium 10.8 mg/dL (8.6-10.3); Chloride 103 mmol/L (101-111); EGFR African American 84.6 (>60); EGFR Non-African American 69.9 (>60); Glucose 140 mg/dL (70-100); Sodium 140 mmol/L (135-145); Total Protein 7.8 g/dL (6.4-8.9)
[2019-10-20 19:51] LABS: AST 52 U/L (13-39); Anion Gap 15 mmol/L (2-11); Potassium 3.9 mmol/L (3.5-5.0)
[2019-10-20 20:00] VITALS: BP 117/68
== END 2019-10-20 19:59 | disposition home or self-care (01) ==
LOC: ED 17:40
DX: R55 Syncope and collapse (principal); R07.9 Chest pain, unspecified; R20.0 Anesthesia of skin; F41.9 Anxiety disorder, unspecified; R42 Dizziness and giddiness; F17.210 Nicotine dependence, cigarettes, uncomplicated; K21.9 Gastro-esophageal reflux disease without esophagitis; Z79.899 Other long term (current) drug therapy
CPT/HCPCS: 36415; 80053; 84702; 85025; 93005; 99282; A9270-GY